=== PATIENT | male | born 1975 | race Caucasian/White ===

== ENCOUNTER 2022-04-18 10:11 | Outpatient (CLI) | payer OTHER, SELFPAY ==
--- NOTE | 2022-04-18 10:15 | CRLHL7_ITS ---
For Patients: As a result of the Century Cures Act, medical imaging exams and procedure reports are released immediately into your electronic medical record. You may view this report before your referring provider. If you have questions, please contact your health care provider. Indication: Low back pain Technique: Multiplanar, multisequence, MRI of the lumbar spine, obtained without contrast. Comparison: No relevant comparison studies available at this institution. Findings: Transitional lumbosacral anatomy. For numbering purposes, the last rib-bearing vertebra is designated T12, followed by 4 [id number] lumbar vertebrae, a transitional-sacralized L5 segment, and a rudimentary L5-S1 intervertebral disc designated as axial T2 series 5, image 17. The normal lumbar lordosis is preserved. There is grade 1 retrolisthesis L4 on L5, with prominent focal bony edema centered at a left L4 pedicle fracture. No other acute osseous abnormality identified. Background bone marrow signal is unremarkable. The conus medullaris terminates at approximately L1. No suspicious findings in the paraspinal soft tissues. Unremarkable included SI joints. T11-T12, T12-L1, L1-L2: No significant neural foraminal or spinal canal stenosis. L2-L3: Mild diffuse disc bulge, mild facet arthropathy. Mild-moderate right neural foraminal narrowing. No significant left neuroforaminal or spinal canal stenosis. L3-L4: Diffuse disc bulge, facet arthropathy. Mild right, mild-moderate left neural foraminal narrowing. No spinal canal stenosis. L4-L5: Grade 1 anterolisthesis, left pedicle fracture, right subarticular/foraminal caudal disc extrusion, facet arthropathy. Mild-moderate right, moderate-severe left neural foraminal stenosis with likely impingement of the exiting left L4 nerve root. Contact on the descending right L5 nerve root. Mild spinal canal narrowing. L5-S1: Rudimentary disc space no significant neural foraminal or spinal canal stenosis. Impression: 1. For numbering purposes, the last rib-bearing vertebra is designated T12, followed by 4 [id number] lumbar vertebrae, a transitional-sacralized L5 segment, and a rudimentary L5-S1 intervertebral disc. 2. Recent-appearing left L4 pedicle fracture with prominent focal bony edema and mild grade 1 anterolisthesis L4 on L5. 3. At L4-5, grade 1 retrolisthesis with right subarticular/foraminal caudal disc extrusion contacting the descending right L5 nerve root along the lateral recess, and moderate-severe left neural foraminal stenosis likely impinging the exiting left L4 nerve root. 4. Additional mild-moderate neural foramina narrowing elsewhere as detailed. 5. No significant spinal canal stenosis. Dictated by Malaika Weaver MD @ 04/18/2022 3:42:24 PM (Electronically Signed)
== END 2022-04-18 10:12 | disposition home or self-care (01) ==
PROVIDERS: Visit Provider Physical Medicine & Rehabilitation
DX: M54.50 Low back pain, unspecified (principal); M51.26 Other intervertebral disc displacement, lumbar region
CPT/HCPCS: 72148

== ENCOUNTER 2022-06-09 10:32 | Outpatient (CLI) | payer OTHER, SELFPAY ==
--- NOTE | 2022-06-09 11:00 | CRLHL7_ITS ---
For Patients: As a result of the Century Cures Act, medical imaging exams and procedure reports are released immediately into your electronic medical record. You may view this report before your referring provider. If you have questions, please contact your health care provider. INDICATION: Low back pain. TECHNIQUE: Noncontrast axial CT of the lumbar spine with coronal/sagittal 3D reformats are provided compared to prior study from April 18, 2022. FINDINGS: In keeping with the prior dictation, the inferior-most rib-bearing vertebrae will be addressed as T12. There are 4 segmented lumbar vertebrae with sacralization of the L5 segment. Plain film correlation recommended prior to any surgical intervention. The overall stature and alignment of the lumbar spine is within normal limits. T12-L1, L1-2: Unremarkable. L2-3: Stable mild circumferential disk bulge and mild bilateral facet arthropathy results in no significant central canal or foraminal narrowing. L3-4: Stable mild broad-based posterior disc bulge and bilateral facet arthropathy results in no central canal narrowing. Stable mild bilateral foraminal narrowing. L4-5: Mild broad-based posterior disk bulge with endplate osteophyte and mild bilateral facet arthropathy results in stable mild central canal narrowing. Prior noted irregularity of the left pedicle demonstrates no definable correlate on the CT suggesting interval healing or have represented a stress reaction. Stable mild to moderate right and moderate to severe left foraminal narrowing. Moderate to severe right and mild to moderate left lateral recess narrowing with compression of the traversing L5 nerve roots, right more so than left. L5-S1: No central canal or foraminal narrowing. IMPRESSION: 1. Sacralization of the L5 segment. Plain film correlation recommended prior to any surgical intervention. 2. Stable moderate to severe left, mild to moderate right foraminal narrowing at L4-5 with mild central canal narrowing and moderate to severe bony right and mild to moderate left lateral recess narrowing with compression of the traversing L5 nerve roots, right more so than left. 3. No definable irregularity of the left L4 pedicle suggesting interval improvement/healing of the prior noted irregularity. Alternatively, the prior noted signal changes may represent a stress reaction. 4. Milder degenerative change within the remainder of the lumbar spine as outlined above. Please note that all CT scans at this facility use dose modulation, iterative reconstruction, and/or weight-based dosing when appropriate to reduce radiation dose to as low as reasonably achievable. Dictated by Nima Arzola MD @ 06/10/2022 10:16:07 AM (Electronically Signed)
== END 2022-06-09 10:33 | disposition home or self-care (01) ==
LOC: CT 10:35
PROVIDERS: Visit Provider Physical Medicine & Rehabilitation
DX: M54.50 Low back pain, unspecified (principal); M51.26 Other intervertebral disc displacement, lumbar region
CPT/HCPCS: 72131

== ENCOUNTER 2022-09-26 17:46 | Emergency (ER) | payer OTHER, SELFPAY ==
[2022-09-26 17:59] VITALS: BP 154/86; PULSE 95; RESP 16; TEMP 36.5; O2SAT 96; BMI 26.6
--- NOTE | 2022-09-26 18:09 | ED.LOWEXIN ---
HPI - Extremity Injury (Lower) General Time Seen by Provider: 18:09 Date Seen: 09/26/22 Chief Complaint: Extremity Pain/Injury, Lower Stated Complaint: Stubbed R toe, possibly broke it Time Seen by Provider: 09/26/22 17:47 Source: patient and RN notes reviewed Mode of arrival: ambulatory Limitations: no limitations History of Present Illness HPI Narrative: Patient is coming with complaint of right 4th toe pain after he accidentally kicked the edge of the doorjamb. Toe looks crooked to him and is painful. Nothing else was injured. This happened just prior to arrival. Did sustain a little wound at the end of the toe with some bleeding. Related Data Home Medications Medication Instructions Recorded Confirmed ibuprofen 200 mg capsule 200 mg PO Q6H PRN 05/19/22 05/19/22 dextroamphetamine-amphetamine 15 1 tab PO DAILY 09/26/22 09/26/22 mg tablet dextroamphetamine-amphetamine ER 1 cap PO DAILY 09/26/22 09/26/22 30 mg 24hr capsule,extend release (Adderall XR) Allergies Allergy/AdvReac Type Severity Reaction Status Date / Time No Known Drug Allergies Allergy Verified 05/19/22 09:58 Review of Systems Narrative: As per HPI PFSH PFSH Surgical History (Updated 05/19/22 @ 10:01 by Jennifer Ruth ~ [facility]) History of hand surgery ?Z98.890 - Other specified postprocedural states (ICD-10) Family History (Updated 05/19/22 @ 10:01 by Jennifer Ruth ~ [facility]) Mother Diabetes Social History Smoking Status: Former smoker How often do you have a drink containing alcohol: 4 or more times a week How many standard drinks containing alcohol do you have on a typical day: 3 or 4 How often do you have six or more drinks on one occasion: Never AUDIT-C Alcohol total score: 5 Non-prescribed substance use: marijuana (any form) Exam Const: Vital Signs, click to edit/add: Vital Signs - 24 hr 09/26/22 17:59 Temperature 97.7 F Pulse Rate [Right Pulse Oximeter] 95 Respiratory Rate 16 Blood Pressure [Ri ght Upper Arm] 154/86 H Pulse Oximetry 96 Oxygen Delivery Me thod Room Air Documenting provider has reviewed patient's vital signs: yes Other: Patient sitting wheelchair in exam room 5. His right 4th toe looks like it is angulated, is swollen and painful. A little bit of dried blood at the distal bulb of this digit, so has normal light touch sensation. Is exquisitely tender within the toe itself, did not attempt to mobilize it. Other digits and foot are without any concern at this time. Course Course Hospital Course: Certainly appears that he has sustained an injury with possible fracture to this right 4th toe. We will be getting imaging to understand the underlying extent of injury. Reevaluation(s) Time of Reevaluation #1: 18:57 Reevaluation #1: Patient had digital block performed using 6 mL of plain 1% lidocaine. He was given some time for anesthesia to take effect. Toe was reduced with just gentle traction. Good alignment was observed afterwards. Will get post reduction films. Consultations Consultation #1: Dr. Lane did come down and see the patient, he recommended attempting to reduce fracture to improve alignment which is already planned. He will see patient in follow up in clinic next week to ensure appropriate healing. Vital Signs Vital signs: Initial Vital Signs Temperature 97.7 F 09/26/22 17:59 Temperature Source Temporal Artery Scan 09/26/22 17:59 Pulse Rate 95 09/26/22 17:59 Pulse Rhythm Regular 09/26/22 17:59 Respiratory Rate 16 09/26/22 17:59 Blood Pressure 154/86 H 09/26/22 17:59 Blood Pressure Mean 108 H 09/26/22 17:59 Blood Pressure Position Sitting 09/26/22 17:59 Pulse Oximetry 96 09/26/22 17:59 Oxygen Delivery Method Room Air 09/26/22 17:59 Vital Signs Temperature 97.7 F 09/26/22 17:59 Pulse Rate 95 09/26/22 17:59 Respiratory Rate 16 09/26/22 17:59 Blood Pressure 154/86 H 09/26/22 17:59 Pulse Oximetry 96 09/26/22 17:59 Oxygen Delivery Method Room Air 09/26/22 17:59 Temperature 97.7 F 09/26/22 17:59 Pulse Rate 95 09/26/22 17:59 Respiratory Rate 16 09/26/22 17:59 Blood Pressure 154/86 H 09/26/22 17:59 Pulse Oximetry 96 09/26/22 17:59 Oxygen Delivery Method Room Air 09/26/22 17:59 MDM - Extremity Injury (Lower) Imaging Data XR right 4th toe: Attestation: I have reviewed the pertinent imaging results. My impression: See oblique fracture in proximal phalanx, somewhat displaced, await radiology over-read. On post-reduction images, see improved alignment. Will have radiology over-read done as well. Radiologist's impression: Patient: KEENAN MAYORGA Facility:?[facility] Patient ID:?[id number] Site Patient ID:?[id number]. Site :?[id number] Study:?XRay Extremity Right TOE 4TH-09/26/2022 6:33:22 PM Ordering Physician:Magno Stephens Final Report: INDICATION: Injury and deformity. TECHNIQUE: Three views of the right 4th toe. COMPARISON: None. IMPRESSION : There is a comminuted fracture of the proximal phalanx of the 4th toe with approximately 15 degrees lateral angulation of the distal fracture fragments. The fracture enters the very medial aspect of the PIP joint. There is associated soft tissue swelling. No dislocation. Dictated by Anupama Hannah MD @ 09/26/2022 7:22:20 PM (Electronic Signature) Patient: KEE[facility]N [facility] Facility:?[facility] Patient ID:?[id number] Site Patient ID:?[id number]. Site :?[id number] Study:?XRay Extremity Right 4 DIGIT-09/26/2022 7:29:31 PM Ordering Physician:?Mary Stephens Final Report: Indication: Postreduction. Technique: Right foot, 4th phalanx, 3 views. Comparison: None. Findings/Impression: Bones: Redemonstrated comminuted intra-articular fracture of the right proximal 4th phalanx. The fracture fragments appear to be in slightly better alignment than the prior examination. Improved alignment at the PIP joint. Joint spaces: Unremarkable. Soft tissues: Soft tissue swelling surrounding the fracture site. Dictated by Chandrika Perdomo MD @ 09/26/2022 7:54:15 PM (Electronic Signature) Critical Care Time Critical Care Time Critical Care Time: No Discharge Plan Discharge Clinical Impression: Fracture of fourth toe, right, closed Patient Disposition: Home, Self-Care Condition: Stable Instructions: Toe Fracture (ED) Additional Instructions: Need to wear postoperative shoe as it is firm soled and will provide the support for this toe fracture that is needed. Akil tape the 4th toe to the 3rd toe until otherwise advised. Ice, elevate to decrease pain and swelling. Can use Tylenol and ibuprofen per bottle directions as needed for pain control. You need to follow-up with Dr. Lane next week, call [facility] to get scheduled for this appointment. Activity Level: Activity as Tolerated Prescriptions: No Action ibuprofen 200 mg capsule 200 mg PO Q6H PRN dextroamphetamine-amphetamine 15 mg tablet 1 tab PO DAILY dextroamphetamine-amphetamine [Adderall XR] 30 mg capsule,extended release 24hr 1 cap PO DAILY Follow Up/Referrals: Provider,Not a Local [Primary Care Provider] - Stand Alone Forms: MyHealth Info Instructions
--- NOTE | 2022-09-26 18:15 | CRLHL7_ITS ---
For Patients: As a result of the Cures Act, medical imaging exams and procedure reports are released immediately into your electronic medical record. You may view this report before your referring provider. If you have questions, please contact your health care provider. INDICATION: Injury and deformity. TECHNIQUE: Three views of the right 4th toe. COMPARISON: None. IMPRESSION : There is a comminuted fracture of the proximal phalanx of the 4th toe with approximately 15 degrees lateral angulation of the distal fracture fragments. The fracture enters the very medial aspect of the PIP joint. There is associated soft tissue swelling. No dislocation. Dictated by Anupama Hannah MD @ 09/26/2022 7:22:20 PM (Electronically Signed)
[2022-09-26] MEDS: LIDOCAINE 1% MDV 6 ML INJECTION (19:00)
--- NOTE | 2022-09-26 19:07 | CRLHL7_ITS ---
For Patients: As a result of the Cures Act, medical imaging exams and procedure reports are released immediately into your electronic medical record. You may view this report before your referring provider. If you have questions, please contact your health care provider. Indication: Postreduction. Technique: Right foot, 4th phalanx, 3 views. Comparison: None. Findings/Impression: Bones: Redemonstrated comminuted intra-articular fracture of the right proximal 4th phalanx. The fracture fragments appear to be in slightly better alignment than the prior examination. Improved alignment at the PIP joint. Joint spaces: Unremarkable. Soft tissues: Soft tissue swelling surrounding the fracture site. Dictated by Chandrika Perdomo MD @ 09/26/2022 7:54:15 PM (Electronically Signed)
== END 2022-09-26 19:37 | disposition home or self-care (01) ==
PROVIDERS: Emergency Provider Family Medicine
DX: S92.501A Displaced unspecified fracture of right lesser toe(s), initial encounter for closed fracture (principal); W22.8XXA Striking against or struck by other objects, initial encounter
CPT/HCPCS: 28515; 73660; 99283

== ENCOUNTER 2022-11-29 09:48 | Outpatient (CLI) | payer OTHER, SELFPAY ==
--- NOTE | 2022-11-29 10:00 | CRLHL7_ITS ---
For Patients: As a result of the Century Cures Act, medical imaging exams and procedure reports are released immediately into your electronic medical record. You may view this report before your referring provider. If you have questions, please contact your health care provider. Indication: LOWER BACK PAIN, HX OF COMPRESSION FX Technique: Noncontrast CT lumbar spine Please note that all CT scans at this facility use dose modulation, iterative reconstruction, and/or weight-based dosing when appropriate to reduce radiation dose to as low as reasonably achievable. Comparison: MRI 08/21/2022, CT 06/09/2022 Findings: Transitional lumbosacral anatomy again noted. There are nondisplaced fracture deformities involving the L4 pedicles bilaterally. No spondylolisthesis. No paraspinal mass. No vertebral body compression fracture. Diminutive residual disc space at L5-S1. Chronic densities associated with the posterior L4-5 disc, as before. Posterior ridging L3-4. Mild anterior spurring mid and lower lumbar spine. Mild multilevel facet degeneration. Similar foraminal stenosis on the left at L4-5. Milder foraminal narrowing also similar bilaterally L3-4 and on the right at L4-5. Mild canal narrowing L2 through L5 due to disc bulging. Impression: Nondisplaced bilateral pedicle fractures at L4 are similar. No vertebral body compression fracture. Similar canal and foraminal narrowing L2-L5. Please note that all CT scans at this facility use dose modulation, iterative reconstruction, and/or weight-based dosing when appropriate to reduce radiation dose to as low as reasonably achievable. Dictated by Anshu Villaseñor MD @ 11/29/2022 12:46:36 PM (Electronically Signed)
== END 2022-11-29 09:49 | disposition home or self-care (01) ==
PROVIDERS: Visit Provider Orthopaedic Surgery
DX: M54.50 Low back pain, unspecified (principal); S32.049A Unspecified fracture of fourth lumbar vertebra, initial encounter for closed fracture; M51.26 Other intervertebral disc displacement, lumbar region
CPT/HCPCS: 72131